=== PATIENT | male | born 1960 | race Caucasian/White ===

== ENCOUNTER 2019-05-22 20:12 | Inpatient (IN) | payer OTHER ==
[~2019-05-22] VITALS: Ht 185.4 cm; Wt 89.7 kg
[~2019-05-22 20:12] MED LIST: ATROPINE SYRINGE 0.1 MG/ML, 10ML ONE; CALCIUM CHLORIDE 10%, 10ML SYR ONE; EPINEPHRINE SYRINGE 0.1 MG/ML, 10ML ONE; SODIUM BICARB 8.4%, 50ML SYRINGE ONE
--- NOTE | 2019-05-22 20:40 | NUR ---
PT BIB EMS TRANSFER FROM [facility]. PT DX WITH ACUTE LIVER FAILURE, PT JAUNICED X2 DAYS AND REPORTS WEAKNESS FOR X4 WEEKS, PT REPORTS BINGE DRINKING AT LEAST WEEKLY. EMS REPORTS PT UNSTEADY ON HIS FEET. AOX4. PT BS 28 ON ADMIT TO ED. ORDER TO HAND D10 250ML GIVEN BY DR. BEAVERS, AND STARTED AT THIS TIME. PT CONNECTED TO ALL MONITORING, CALL LIGHT WITHNI REACH ALL SAFETY MEASURES IN PLACE. FAMILY AT BEDSIDE FOR SUPPORT.
[2019-05-22] MEDS ORDERED: SODIUM CHLORIDE FLUSH 10ML SYR IVF ONE (21:00)
[2019-05-22] MEDS ORDERED: DEXTROSE 50%, 50ML SYRINGE IVPush ONE (21:00)
[2019-05-22] MEDS: D5%-0.9% NACL 1,000 ML IV SCH ×2 (21:15→23:56)
--- NOTE | 2019-05-22 21:26 | NUR ---
GI SURGEON IN ROOM TO DISCUSS POC WITH PT.
--- NOTE | 2019-05-22 21:27 | NUR ---
PT BLOOD SUGAR 160 POST MEDICATION. PT REPORTS NO CHANGE IN SYMPTOMS. FAMILY AT BS FOR SUPPORT.
[2019-05-22] MEDS ORDERED: DEXTROSE 10% 250 ML IV SCH (21:30)
[2019-05-22 21:34] LABS: INTERNATIONAL NORMALIZED RATIO 1.31 (0.93-1.1); PROTHROMBIN TIME 13.9 Seconds (9.6-11.5)
[2019-05-22 21:39] LABS: ALANINE AMINOTRANSFERASE 69 U/L (12-78); ALBUMIN 1.5 g/dL (3.4-5.0); ANION GAP 22 mmol/L (5-15); CHLORIDE 90 mmol/L (98-107)
[2019-05-22 21:47] LABS: ALKALINE PHOSPHATASE 312 U/L (45-117)
[2019-05-22 21:48] LABS: MD YES; MEAN CORPUSCULAR HEMOGLOBIN 37.2 pg (27.5-34.5); MEAN CORPUSCULAR HGB CONC 32.3 g/dL (33.2-36.2); MEAN CORPUSCULAR VOLUME 115.2 fL (81-97); MEAN PLATELET VOLUME 8.1 fL (7.4-10.4); PLATELET COUNT 161 x10^3/uL (130-400); RED CELL DISTRIBUTION WIDTH 15.2 % (9.4-14.8)
[2019-05-22 21:50] LABS: BANDS%(MANUAL) 1 % (0-7); LYMPHS% (MANUAL) 1 % (22-44); MONOS#(MANUAL) 0.78 x10^3/uL (0.3-2.7); MONOS% (MANUAL) 8 % (2-9); SEG#(MANUAL) 8.73 x10^3/uL (1.8-6.8); SEGS% (MANUAL) 90 % (42-75); TARGET CELLS 1+
[2019-05-22 21:51] LABS: ANISOCYTOSIS 1+
[2019-05-22 21:52] LABS: <PLATELET ESTIMATE> ADEQUATE; <PLT MORPHOLOGY> NORMAL PLT MORPH; CREATININE 3.87 mg/dL (0.7-1.3); TOTAL PROTEIN 5.8 g/dL (6.4-8.2)
[2019-05-22 21:54] LABS: BILIRUBIN,TOTAL 22.4 mg/dL (0.2-1.0)
--- NOTE | 2019-05-22 21:54 | NUR ---
CRITICAL VALUE CALLED BY LAB BILIRUBIN 22.4. NOTIFIED.
[2019-05-22] MEDS ORDERED: LEVO100V9 PO (22:58)
[2019-05-22] MEDS ORDERED: PHARMACY MAY ADJ FOR RENAL FX MC PRN (23:00)
[2019-05-22] MEDS ORDERED: DEXTROSE 50%, 50ML SYRINGE IVPush PRN (23:00)
[2019-05-22] MEDS ORDERED: DEXTROSE 4 GM TAB.CHEW PO PRN (23:00)
[2019-05-22] MEDS ORDERED: ONDANSETRON 2MG/ML, 2ML IVPush PRN (23:00)
[2019-05-22] MEDS ORDERED: THIAMINE 200 MG in SODIUM CHLORIDE 0.9% 50 ML IV ONE (23:00)
[2019-05-22] MEDS ORDERED: GLUCAGON 1 MG IM PRN (23:00)
[2019-05-22 23:38] LABS: ACETONE, SERUM Small (20mg/dL) mg/dL (Negative)
[2019-05-22] MEDS: methylPREDNISolone SOD SUCC 40 MG/ML IV SCH (23:58)
[2019-05-23] MEDS: D5%-0.9% NACL 1,000 ML IV SCH ×3 (04:10→20:12)
[2019-05-23 04:41] LABS: ALANINE AMINOTRANSFERASE 73 U/L (12-78); ALBUMIN 1.4 g/dL (3.4-5.0); ANION GAP 17 mmol/L (5-15); CALCIUM 6.6 mg/dL (8.5-10.1); CHLORIDE 92 mmol/L (98-107)
[2019-05-23 04:42] LABS: ALKALINE PHOSPHATASE 305 U/L (45-117)
[2019-05-23 04:43] LABS: CREATININE 4.25 mg/dL (0.7-1.3)
[2019-05-23 04:44] LABS: TOTAL PROTEIN 5.6 g/dL (6.4-8.2)
[2019-05-23 04:45] LABS: BILIRUBIN,TOTAL 23.4 mg/dL (0.2-1.0)
[2019-05-23 04:47] LABS: MEAN CORPUSCULAR HEMOGLOBIN 37.5 pg (27.5-34.5); MEAN CORPUSCULAR HGB CONC 32.9 g/dL (33.2-36.2); MEAN PLATELET VOLUME 8.1 fL (7.4-10.4); PLATELET COUNT 145 x10^3/uL (130-400); RED BLOOD COUNT 2.95 x10^6/uL (4.38-5.82); RED CELL DISTRIBUTION WIDTH 15.4 % (9.4-14.8)
[2019-05-23 06:01] LABS: MD YES
[2019-05-23 06:02] LABS: BAND#(MANUAL) 0.18 x10^3/uL; BANDS%(MANUAL) 2 % (0-7); LYMPH#(MANUAL) 0.35 x10^3/uL (1-3.4); LYMPHS% (MANUAL) 4 % (22-44); MONOS#(MANUAL) 0.09 x10^3/uL (0.3-2.7); MONOS% (MANUAL) 1 % (2-9); SEG#(MANUAL) 8.18 x10^3/uL (1.8-6.8); SEGS% (MANUAL) 93 % (42-75)
[2019-05-23 06:03] LABS: <PLATELET ESTIMATE> ADEQUATE; <PLT MORPHOLOGY> NORMAL PLT MORPH; ANISOCYTOSIS 1+; TARGET CELLS 1+
[2019-05-23] MEDS ORDERED: CHLORDIAZEPOXIDE 25 MG CAPSULE PO SCH (09:00)
[2019-05-23] MEDS: LACTULOSE 20 GM/30 ML UDC PO SCH ×2 (09:34→21:00)
[2019-05-23] MEDS: POTASSIUM CHLORIDE 20 MEQ, MAGNESIUM SULFATE 1 GM, FOLIC ACID 1 MG, THIAMINE 200 MG, MV... IV SCH (09:34)
[2019-05-23] MEDS: CHLORDIAZEPOXIDE 10 MG CAPSULE PO SCH ×4 (09:34→23:06)
[2019-05-23] MEDS ORDERED: SODIUM PHOSPHATE 10 MMOL in SODIUM CHLORIDE 0.9% 500 ML IV ONE (10:00)
[2019-05-23] MEDS ORDERED: CALCIUM CHLORIDE 13.6 MEQ in SODIUM CHLORIDE 0.9% 100 ML IV ONE (10:00)
[2019-05-23] MEDS ORDERED: LIDOCAINE 1%, 10ML ONE (10:06)
[2019-05-23] MEDS: ALBUMIN HUMAN 25% 100 ML IV SCH ×2 (10:42→20:34)
[2019-05-23 10:51] LABS: MICROSCOPIC INDICATED
[2019-05-23 11:41] LABS: POTASSIUM,URINE RANDOM 2 mmol/L; SODIUM,URINE RANDOM 13 mmol/L
[2019-05-23 11:48] LABS: CHLORIDE,URINE RANDOM < 10 mmol/L
[2019-05-23] MEDS: methylPREDNISolone SOD SUCC 40 MG/ML IV SCH ×2 (12:55→22:52)
[2019-05-23] MEDS: MIDODRINE 5 MG TABLET PO SCH ×3 (12:55→21:00)
[2019-05-23] MEDS: OCTREOTIDE 500 MCG/ML, 1ML (0.5MG/ML) SQ SCH ×3 (12:55→21:00)
[2019-05-23 13:43] LABS: ANA SCREEN NEGATIVE (Negative)
[2019-05-23 17:37] VITALS: BP 133/72
[2019-05-23 18:45] VITALS: BP 137/76
[2019-05-23] MEDS: LORazepam 2 MG/ML, 1ML IVPush PRN ×2 (18:51→23:24)
[2019-05-23] MEDS: CEFTRIAXONE PMX 1GM/50ML 50 ML IV SCH (21:52)
[2019-05-24 00:55] VITALS: BP 128/79
[2019-05-24] MEDS ORDERED: LORazepam 1MG TABLET PO PRN ×4 (02:00)
[2019-05-24] MEDS ORDERED: LORazepam 2 MG/ML, 1ML IV PRN ×4 (02:00)
[2019-05-24] MEDS ORDERED: LORazepam 0.5MG TABLET PO PRN (02:00)
[2019-05-24] MEDS: LORazepam 2 MG/ML, 1ML IV PRN ×2 (02:17→04:30)
[2019-05-24] MEDS: ALBUMIN HUMAN 25% 100 ML IV SCH ×3 (04:24→20:29)
[2019-05-24 04:41] LABS: MEAN CORPUSCULAR HEMOGLOBIN 37.3 pg (27.5-34.5); MEAN CORPUSCULAR HGB CONC 32.7 g/dL (33.2-36.2); MEAN PLATELET VOLUME 8.3 fL (7.4-10.4); PLATELET COUNT 148 x10^3/uL (130-400); RED BLOOD COUNT 2.86 x10^6/uL (4.38-5.82); RED CELL DISTRIBUTION WIDTH 16.1 % (9.4-14.8)
[2019-05-24 04:47] LABS: INTERNATIONAL NORMALIZED RATIO 1.57 (0.93-1.1); PROTHROMBIN TIME 16.7 Seconds (9.6-11.5)
[2019-05-24 04:51] LABS: ALANINE AMINOTRANSFERASE 63 U/L (12-78); ANION GAP 12 mmol/L (5-15); CALCIUM 7.1 mg/dL (8.5-10.1); CHLORIDE 100 mmol/L (98-107)
[2019-05-24 05:07] LABS: ALKALINE PHOSPHATASE 266 U/L (45-117)
[2019-05-24 05:10] LABS: CREATININE 2.61 mg/dL (0.7-1.3)
[2019-05-24 05:11] LABS: TOTAL PROTEIN 5.9 g/dL (6.4-8.2)
[2019-05-24 05:12] LABS: BILIRUBIN,TOTAL 23.6 mg/dL (0.2-1.0)
[2019-05-24 05:40] LABS: MD YES
[2019-05-24 05:42] LABS: BAND#(MANUAL) 0.09 x10^3/uL; BANDS%(MANUAL) 1 % (0-7); LYMPH#(MANUAL) 0.09 x10^3/uL (1-3.4); LYMPHS% (MANUAL) 1 % (22-44); MONOS#(MANUAL) 0.19 x10^3/uL (0.3-2.7); MONOS% (MANUAL) 2 % (2-9); SEG#(MANUAL) 8.93 x10^3/uL (1.8-6.8); SEGS% (MANUAL) 96 % (42-75)
[2019-05-24 05:43] LABS: <PLATELET ESTIMATE> ADEQUATE; <PLT MORPHOLOGY> NORMAL PLT MORPH; ANISOCYTOSIS 1+; TARGET CELLS 1+
[2019-05-24] MEDS: D5%-0.9% NACL 1,000 ML IV SCH (06:02)
[2019-05-24 06:48] VITALS: BP 135/82
[2019-05-24] MEDS: CHLORDIAZEPOXIDE 10 MG CAPSULE PO SCH ×2 (08:24→12:53)
[2019-05-24] MEDS: MIDODRINE 5 MG TABLET PO SCH (08:24)
[2019-05-24] MEDS: LACTULOSE 20 GM/30 ML UDC PO SCH ×5 (08:25→21:09)
[2019-05-24] MEDS: OCTREOTIDE 500 MCG/ML, 1ML (0.5MG/ML) SQ SCH (08:28)
[2019-05-24] MEDS: POTASSIUM CHLORIDE 20 MEQ, MAGNESIUM SULFATE 1 GM, FOLIC ACID 1 MG, THIAMINE 200 MG, MV... IV SCH (10:40)
[2019-05-24] MEDS: methylPREDNISolone SOD SUCC 40 MG/ML IV SCH ×2 (11:35→22:21)
[2019-05-24 12:20] VITALS: BP 138/83
--- NOTE | 2019-05-24 15:17 | NUR ---
Osmolite 1.2 goal: 85 ml/hr Addendum: 05/24/19 at [address] Amended: Links added.
[2019-05-24 19:13] VITALS: BP 147/82
[2019-05-24] MEDS: CEFTRIAXONE PMX 1GM/50ML 50 ML IV SCH (22:21)
[2019-05-25 01:18] VITALS: BP 154/83
[2019-05-25 04:58] LABS: ALBUMIN 2.6 g/dL (3.4-5.0); ANION GAP 12 mmol/L (5-15); CHLORIDE 105 mmol/L (98-107)
[2019-05-25] MEDS: ALBUMIN HUMAN 25% 100 ML IV SCH ×3 (05:03→19:38)
[2019-05-25 05:11] LABS: ALANINE AMINOTRANSFERASE 58 U/L (12-78); ALKALINE PHOSPHATASE 243 U/L (45-117)
[2019-05-25 05:13] LABS: CREATININE 1.57 mg/dL (0.7-1.3)
[2019-05-25 05:14] LABS: TOTAL PROTEIN 6.1 g/dL (6.4-8.2)
[2019-05-25 05:16] LABS: BILIRUBIN,TOTAL 27.6 mg/dL (0.2-1.0)
[2019-05-25 05:48] LABS: INTERNATIONAL NORMALIZED RATIO 1.44 (0.93-1.1); PROTHROMBIN TIME 15.3 Seconds (9.6-11.5)
[2019-05-25 07:46] VITALS: BP 156/84
[2019-05-25] MEDS: POTASSIUM CHLORIDE 20 MEQ, MAGNESIUM SULFATE 1 GM, FOLIC ACID 1 MG, THIAMINE 200 MG, MV... IV SCH (08:25)
[2019-05-25] MEDS: LACTULOSE 20 GM/30 ML UDC PO SCH ×3 (08:25→20:59)
[2019-05-25] MEDS: methylPREDNISolone SOD SUCC 40 MG/ML IV SCH ×2 (11:12→22:19)
[2019-05-25 14:03] VITALS: BP 168/89
[2019-05-25] MEDS: LORazepam 2 MG/ML, 1ML IVPush PRN ×2 (14:24→19:36)
[2019-05-25 18:44] VITALS: BP 147/82
[2019-05-25] MEDS: CEFTRIAXONE PMX 1GM/50ML 50 ML IV SCH (22:20)
[2019-05-26] MEDS: LORazepam 2 MG/ML, 1ML IVPush PRN ×4 (00:44→21:46)
[2019-05-26 01:20] VITALS: BP 158/94
[2019-05-26] MEDS: ALBUMIN HUMAN 25% 100 ML IV SCH ×3 (04:27→20:25)
[2019-05-26] MEDS: LACTULOSE 20 GM/30 ML UDC PO SCH ×3 (08:25→21:44)
[2019-05-26] MEDS: POTASSIUM CHLORIDE 20 MEQ, MAGNESIUM SULFATE 1 GM, FOLIC ACID 1 MG, THIAMINE 200 MG, MV... IV SCH (08:25)
[2019-05-26 09:26] LABS: ALANINE AMINOTRANSFERASE 62 U/L (12-78); ANION GAP 12 mmol/L (5-15); CALCIUM 7.4 mg/dL (8.5-10.1); CHLORIDE 107 mmol/L (98-107)
[2019-05-26 09:38] LABS: ALKALINE PHOSPHATASE 239 U/L (45-117)
[2019-05-26 10:01] LABS: MD YES; MEAN CORPUSCULAR HEMOGLOBIN 38.2 pg (27.5-34.5); MEAN CORPUSCULAR HGB CONC 34.1 g/dL (33.2-36.2); MEAN CORPUSCULAR VOLUME 112.3 fL (81-97); MEAN PLATELET VOLUME 7.5 fL (7.4-10.4); PLATELET COUNT 161 x10^3/uL (130-400); RED BLOOD COUNT 2.83 x10^6/uL (4.38-5.82); RED CELL DISTRIBUTION WIDTH 16.2 % (9.4-14.8)
[2019-05-26 10:03] LABS: BAND#(MANUAL) 0.32 x10^3/uL; BANDS%(MANUAL) 2 % (0-7); LYMPH#(MANUAL) 0.48 x10^3/uL (1-3.4); LYMPHS% (MANUAL) 3 % (22-44); METAMYELOCYTES# (MANUAL) 0.16 x10^3/uL (0-0); METAMYELOCYTES% (MANUAL) 1 % (0-1); MONOS#(MANUAL) 1.29 x10^3/uL (0.3-2.7); MONOS% (MANUAL) 8 % (2-9); MYELOCYTES# (MANUAL) 0.16 x10^3/uL (0-0); MYELOCYTES% (MANUAL) 1 % (0-0); NRBC % (MANUAL) 9 % (0-1); SEG#(MANUAL) 13.69 x10^3/uL (1.8-6.8); SEGS% (MANUAL) 85 % (42-75)
[2019-05-26 10:04] LABS: <PLATELET ESTIMATE> ADEQUATE; <PLT MORPHOLOGY> NORMAL PLT MORPH; ANISOCYTOSIS 1+; BASOPHILLIC STIPPLING 1+; TARGET CELLS 1+
[2019-05-26 10:06] LABS: POLYCHROMASIA 1+
[2019-05-26 10:07] LABS: CREATININE 1.22 mg/dL (0.7-1.3); TOTAL PROTEIN 6.1 g/dL (6.4-8.2)
[2019-05-26 10:08] LABS: PAPPENHEIMER BODIES 1+
[2019-05-26 10:09] LABS: BILIRUBIN,TOTAL 35.1 mg/dL (0.2-1.0)
[2019-05-26] MEDS ORDERED: POTASSIUM PHOSPHATE 44 MEQ in SODIUM CHLORIDE 0.9% 500 ML IV ONE ×2 (12:00→21:00)
[2019-05-26] MEDS ORDERED: POTASSIUM CHLORIDE 20 MEQ TAB.ER.PRT PO ONE ×2 (12:00→14:00)
[2019-05-26] MEDS: methylPREDNISolone SOD SUCC 40 MG/ML IV SCH ×2 (12:11→21:45)
[2019-05-26 13:59] VITALS: BP 155/90
[2019-05-26 19:45] VITALS: BP 160/100
[2019-05-26] MEDS: CEFTRIAXONE PMX 1GM/50ML 50 ML IV SCH (22:21)
[2019-05-27 01:25] VITALS: BP 173/98
[2019-05-27] MEDS: LORazepam 2 MG/ML, 1ML IVPush PRN (02:38)
[2019-05-27] MEDS: ALBUMIN HUMAN 25% 100 ML IV SCH ×2 (04:27→11:46)
[2019-05-27] MEDS: LACTULOSE 20 GM/30 ML UDC PO SCH ×3 (05:14→15:57)
[2019-05-27] MEDS ORDERED: SODIUM PHOSPHATE 20 MMOL in SODIUM CHLORIDE 0.9% 500 ML IV ONE ×2 (07:00→13:00)
[2019-05-27 07:07] VITALS: BP 124/82
[2019-05-27] MEDS ORDERED: LEVO200T PO (08:54)
[2019-05-27] MEDS ORDERED: AMLODIPINE 5 MG TABLET PO SCH (09:00)
[2019-05-27] MEDS: POTASSIUM CHLORIDE 20 MEQ, MAGNESIUM SULFATE 1 GM, FOLIC ACID 1 MG, THIAMINE 200 MG, MV... IV SCH (09:16)
[2019-05-27] MEDS ORDERED: ROCURONIUM 10MG/ML,5ML ONE (10:15)
[2019-05-27] MEDS ORDERED: SODIUM BICARBONATE 1 MEQ/ML, 50ML VIAL ONE (10:19)
[2019-05-27] MEDS ORDERED: EPINEPHRINE SYRINGE 0.1 MG/ML, 10ML ONE ×2 (10:19→20:27)
[2019-05-27] MEDS ORDERED: CALCIUM CHLORIDE 10%, 10ML SYR ONE (10:19)
[2019-05-27] MEDS ORDERED: ATROPINE SYRINGE 0.1 MG/ML, 10ML ONE ×2 (10:19→20:27)
[2019-05-27] MEDS ORDERED: RIFAXIMIN 550 MG TABLET PO SCH (10:30)
[2019-05-27] MEDS ORDERED: LEVOTHYROXINE 100 MCG INJ IVPush SCH (11:30)
[2019-05-27] MEDS: methylPREDNISolone SOD SUCC 40 MG/ML IV SCH (11:46)
[2019-05-27 12:22] LABS: ALANINE AMINOTRANSFERASE 70 U/L (12-78); ALBUMIN 3.2 g/dL (3.4-5.0); ANION GAP 11 mmol/L (5-15); CALCIUM 6.7 mg/dL (8.5-10.1); CHLORIDE 111 mmol/L (98-107)
[2019-05-27 12:34] LABS: ALKALINE PHOSPHATASE 246 U/L (45-117)
[2019-05-27 12:38] LABS: MD YES; MEAN CORPUSCULAR HEMOGLOBIN 38.7 pg (27.5-34.5); MEAN CORPUSCULAR HGB CONC 34.2 g/dL (33.2-36.2); MEAN CORPUSCULAR VOLUME 113.2 fL (81-97); MEAN PLATELET VOLUME 7.5 fL (7.4-10.4); PLATELET COUNT 137 x10^3/uL (130-400); RED BLOOD COUNT 2.89 x10^6/uL (4.38-5.82); RED CELL DISTRIBUTION WIDTH 17.4 % (9.4-14.8)
[2019-05-27 12:39] LABS: LYMPH#(MANUAL) 0.42 x10^3/uL (1-3.4); LYMPHS% (MANUAL) 2 % (22-44); METAMYELOCYTES# (MANUAL) 0.21 x10^3/uL (0-0); METAMYELOCYTES% (MANUAL) 1 % (0-1); MONOS#(MANUAL) 1.25 x10^3/uL (0.3-2.7); MONOS% (MANUAL) 6 % (2-9); MYELOCYTES# (MANUAL) 0.21 x10^3/uL (0-0); MYELOCYTES% (MANUAL) 1 % (0-0); NRBC % (MANUAL) 11 % (0-1); SEG#(MANUAL) 18.72 x10^3/uL (1.8-6.8); SEGS% (MANUAL) 90 % (42-75)
[2019-05-27 12:40] LABS: ANISOCYTOSIS 1+; POLYCHROMASIA 1+; TARGET CELLS 1+
[2019-05-27 12:42] LABS: <PLATELET ESTIMATE> ADEQUATE; LARGE PLATELETS 1+; PAPPENHEIMER BODIES 1+; PMNS WITH VACUOLES 1+
[2019-05-27 12:49] VITALS: BP 124/83
[2019-05-27 12:49] LABS: CREATININE 0.76 mg/dL (0.7-1.3)
[2019-05-27 12:50] LABS: TOTAL PROTEIN 5.8 g/dL (6.4-8.2)
[2019-05-27 12:52] LABS: BILIRUBIN,TOTAL 36.6 mg/dL (0.2-1.0)
[2019-05-27] MEDS ORDERED: PIPERACILLIN/TAZO/PMX 3.375GM 50 ML IV SCH (14:30)
[2019-05-27 19:28] VITALS: BP 124/83
[2019-05-27 20:08] LABS: ALANINE AMINOTRANSFERASE 66 U/L (12-78); ALBUMIN 2.7 g/dL (3.4-5.0); ANION GAP 17 mmol/L (5-15); CALCIUM 6.7 mg/dL (8.5-10.1); CHLORIDE 116 mmol/L (98-107)
[2019-05-27 20:11] LABS: CREATININE 1.62 mg/dL (0.7-1.3)
[2019-05-27 20:12] LABS: ALKALINE PHOSPHATASE 242 U/L (45-117)
[2019-05-27 20:15] LABS: TOTAL PROTEIN 5.2 g/dL (6.4-8.2)
[2019-05-27 20:19] LABS: MEAN CORPUSCULAR HEMOGLOBIN 38.2 pg (27.5-34.5); MEAN CORPUSCULAR HGB CONC 32.2 g/dL (33.2-36.2); MEAN CORPUSCULAR VOLUME 118.8 fL (81-97); RED BLOOD COUNT 2.99 x10^6/uL (4.38-5.82); RED CELL DISTRIBUTION WIDTH 18.9 % (9.4-14.8)
[2019-05-27 20:22] LABS: MD YES; MEAN PLATELET VOLUME 8.2 fL (7.4-10.4); PLATELET COUNT 101 x10^3/uL (130-400)
[2019-05-27 20:23] LABS: BILIRUBIN,TOTAL 32.6 mg/dL (0.2-1.0)
[2019-05-27 20:27] LABS: <PLATELET ESTIMATE> DECREASED; <PLT MORPHOLOGY> NORMAL PLT MORPH; BAND#(MANUAL) 0.58 x10^3/uL; BANDS%(MANUAL) 8 % (0-7); LYMPHS% (MANUAL) 18 % (22-44); METAMYELOCYTES# (MANUAL) 1.08 x10^3/uL (0-0); METAMYELOCYTES% (MANUAL) 15 % (0-1); MONOS% (MANUAL) 7 % (2-9); MYELOCYTES# (MANUAL) 0.29 x10^3/uL (0-0); MYELOCYTES% (MANUAL) 4 % (0-0); NRBC % (MANUAL) 69 % (0-1); SEG#(MANUAL) 3.46 x10^3/uL (1.8-6.8); SEGS% (MANUAL) 48 % (42-75)
[2019-05-27] MEDS ORDERED: CODE BLUE RESPONSE XX ONE (20:27)
[2019-05-27] MEDS ORDERED: DEXTROSE 50%, 50ML VIAL ONE (20:27)
[2019-05-27] MEDS ORDERED: DOPAMINE/D5W PMX 400 MG/250 ML ONE (20:27)
[2019-05-27 20:28] LABS: ANISOCYTOSIS 1+; POLYCHROMASIA 1+
[2019-05-27 20:29] LABS: TARGET CELLS 1+
[2019-05-27] MEDS ORDERED: MORPHINE SULFATE 4 MG/ML, 1ML ONE (20:42)
[2019-05-27] MEDS ORDERED: MORPHINE SULFATE 4 MG/ML, 1ML IVPush ONE (21:00)
[2019-05-27] MEDS ORDERED: SCOPOLAMINE PATCH, 1.5MG PATCH.TD72 TD ONE (21:00)
[2019-05-27] MEDS ORDERED: ATROPINE OPHTH SOLN 1%, 5ML BC PRN (21:00)
[2019-05-27] MEDS ORDERED: OMNIPAQUE 350 MG/ML, 100ML BOTTLE ONE (22:19)
== END 2019-05-27 23:07 | disposition expired | DRG 441 ==
LOC: ED 21:26 → EDIP 21:30 → CCU 22:51 → 4NW 05-23 17:34 → 3N 05-25 20:22 → CCU 05-27 20:09
PROVIDERS: ADMIT Family Medicine; ATTEND Hospitalist
PROC: 5A12012 Performance of Cardiac Output, Single, Manual (ICD-10-PCS; principal; 2019-05-22)
DX: K72.00 Acute and subacute hepatic failure without coma (principal); K76.7 Hepatorenal syndrome; N17.0 Acute kidney failure with tubular necrosis; E46 Unspecified protein-calorie malnutrition; E87.1 Hypo-osmolality and hyponatremia; E87.2 Acidosis; F10.239 Alcohol dependence with withdrawal, unspecified; F10.288 Alcohol dependence with other alcohol-induced disorder; D53.9 Nutritional anemia, unspecified; D72.829 Elevated white blood cell count, unspecified; E16.2 Hypoglycemia, unspecified; Z68.26 Body mass index [BMI] 26.0-26.9, adult; E89.0 Postprocedural hypothyroidism; F10.229 Alcohol dependence with intoxication, unspecified; I10 Essential (primary) hypertension; I46.9 Cardiac arrest, cause unspecified; K70.11 Alcoholic hepatitis with ascites; R32 Unspecified urinary incontinence; Z51.5 Encounter for palliative care; Z74.01 Bed confinement status; R09.02 Hypoxemia
CPT/HCPCS: 36415; 36600; 96374; 99291; J7042; 49083; 71045; 74177; 76700; 76770; 80053; 80074; 80307; 81001; 82010; 82140; 82306; 82330; 82390; 82436; 82550; 82570; 82800; 82803; 82962; 83605; 83735; 83970; 84100; 84133; 84156; 84300; 84443; 84484; 85025; 85610; 86038; 87040; 87081; 92950; 93306; G0378; J0461; J0696; J1265; J2354; J2543; J3411; J3475; J3480; P9047; Q9967; J2060; J2270; J2920; J7040